=== PATIENT | male | born 2000 | race Two or more races ===

== ENCOUNTER 2020-02-12 17:18 | Emergency (ER) | payer BC, OTHER ==
[~2020-02-12] VITALS: Ht 162.6 cm; Wt 65.0 kg
[~2020-02-12 17:18] MED LIST: NAPR500T8 PO
[2020-02-12] MEDS ORDERED: IBUPROFEN 200 MG TABLET. PO ONE (17:45)
--- NOTE | 2020-02-12 18:46 | RAD ---
Exam: Chest one view INDICATION: Fever, cough TECHNIQUE: Frontal view of the chest Comparisons: None FINDINGS: The cardiomediastinal silhouette and pulmonary vessels are within normal limits. The lung and pleural spaces are clear. IMPRESSION: No acute cardiopulmonary process. Electronically signed by: Atiya Ji MD (02/12/2020 6:43 PM) [id number]
[2020-02-12 19:00] VITALS: BP 135/60
[2020-02-12] MEDS ORDERED: AZIT500T4 PO (19:02)
--- NOTE | 2020-02-12 19:02 | PHYS DOC ---
Past Medical History Past Medical History: No Pertinent History (LIBBY OROZCO APRN) Past Surgical History: No Surgical History (LIBBY OROZCO APRN) Smoking Status: Never Smoker Alcohol Use: None Drug Use: None (LIBBY OROZCO APRN) General Adult EDM: Chief Complaint: FEVER HPI: HPI: Patient is a 19 year old male who presents to the emergency department with complaints of fever up to 102 that began this morning with a cough and headache. He denies any known exposure to COVID-19. He denies any recent travel. Patient states he is spent most of his time at home since the quarantine began however he has been out in the public shopping and getting gas etc. He denies any shortness of breath, nausea, vomiting, diarrhea, abdominal pain, chest pain, or palpitations. He states that his cough has been dry, he denies any shortness of breath, or weakness. He states he has felt a bit fatigued today. He last took 1 g of Tylenol at 1400 this afternoon. He currently denies any pain. (LIBBY OROZCO APRN) Review of Systems: Review of Systems: Complete ROS is negative unless otherwise noted in HPI. (LIBBY OROZCO APRN) Heart Score: Risk Factors: Risk Factors: DM, Current or recent (<one month) smoker, HTN, HLP, family history of CAD, obesity. Risk Scores: Score 0 - 3: 2.5% MACE over next 6 weeks - Discharge Home Score 4 - 6: 20.3% MACE over next 6 weeks - Admit for Clinical Observation Score 7 - 10: 72.7% MACE over next 6 weeks - Early Invasive Strategies (LIBBY OROZCO APRN) Current Medications: Current Medications Medications (Trade) Dose Ordered Sig/Gloria Start Time Stop Time Status Last Admin Dose Admin Ibuprofen (Motrin) 600 mg 1X ONCE 02/12/20 17:45 02/12/20 17:46 DC (LIBBY OROZCO APRN) Allergies: Allergies: Allergies Coded Allergies Type Severity Reaction Last Updated Verified No Known Drug Allergies 08/10/16 No (LIBBY OROZCO APRN) Physical Exam: PE: Constitutional: Well developed, well nourished, no acute distress, ill appearance. [] HENT: Normocephalic, atraumatic, bilateral external ears normal, bilateral TMs normal, posterior pharynx normal, oropharynx moist, no oral exudates, nose normal. [] Eyes: PERRLA, EOMI, conjunctiva normal, no discharge. [] Neck: Normal range of motion, no tenderness, supple, no stridor. [] Cardiovascular:Heart rate regular rhythm, no murmur [] Lungs & Thorax: Bilateral breath sounds clear to auscultation, Respirations even and unlabored, no retractions, no respiratory distress [] Skin: Flushed, hot, dry, no rash Back: No tenderness Extremities: No cyanosis, no clubbing, ROM intact, no edema. [] Neurologic: Alert and oriented X 3, no focal deficits noted. [] Psychologic: Affect normal, judgement normal, mood normal. [] (LIBBY OROZCO APRN) Current Patient Data: Vital Signs: Vital Signs Date Time Temp Pulse Resp B/P (MAP) Pulse Ox O2 Delivery O2 Flow Rate FiO2 02/12/20 17:31 101.5 93 18 121/60 (80) 99 Room Air 101.5 (LIBBY OROZCO APRN) EKG: EKG: [] (LIBBY OROZCO APRN) Radiology/Procedures: Radiology/Procedures: PROCEDURE: CHEST AP ONLY Exam: Chest one view INDICATION: Fever, cough TECHNIQUE: Frontal view of the chest Comparisons: None FINDINGS: The cardiomediastinal silhouette and pulmonary vessels are within normal limits. The lung and pleural spaces are clear. IMPRESSION: No acute cardiopulmonary process. [] (LIBBY OROZCO APRN) Course & Med Decision Making: Course & Med Decision Making Pertinent Labs and Imaging studies reviewed. (See chart for details) Patient is a 19-year-old male who presented to the emergency room with compla ints of fever and a cough. Patient's temperature was 101.5 on arrival. He was given 600 mg of ibuprofen in the ER. Physical exam and pt hx is concerning for COVID-19. A COVID-19 nasal swab was ordered. I advised the patient that he needs to go home and quarantine himself for 14 days or until he has been symptom free without medications for 72 hours. He is to drink plenty of fluids, take Tylenol or ibuprofen as needed for fever. Prescription written for Z-lea to take as directed. COVID-19 CRITERIA: The patient was evaluated during the global COVID-19 pandemic, and that diagnosis was suspected/considered upon their initial presentation. Their evaluation, treatment and testing was consistent with current guidelines for patients who present with complaints or symptoms that may be related to COVID-19. (LIBBY OROZCO APRN) [place] Disclaimer: [place] Disclaimer: This electronic medical record was generated, in whole or in part, using a voice recognition dictation system. (LIBBY OROZCO APRN) Departure Departure Impression: Primary Impression: URI with cough and congestion Additional Impressions: Advice given about COVID-19 virus infection Suspected COVID-19 virus infection Fever Qualified Codes: R50.9 - Fever, unspecified Disposition: 01 HOME, SELF-CARE Condition: STABLE Referrals: NO PCP (PCP) Patient Instructions: Fever, Adult, [id number], Upper Respiratory Infection, Adult, [id number] Additional Instructions: Thank you for visiting [facility]. We appreciate you trusting us with your care. If any additional problems come up please don't hesitate to return to visit us. Follow up with your primary care provider so they can plan additional care if needed and know about the problem that you had today. If symptoms worsen come back to the Emergency Department. Any concerning symptoms that start such as chest pain, shortness of air, weakness or numbness on one side of the body, running high fevers or any other concerning symptoms return to the ER. You have a viral syndrome which may include symptoms like muscle aches, fevers, chills, runny nose, cough, sneezing, sore throat, nausea, vomiting, or diarrhea. One of the potential viruses that you may have is SARS-CoV-2, the virus that causes COVID-19, also known as the Coronavirus. You are just as likely to have a different viral infection such as the common cold, flu, etc. Most patients with the Coronavirus have mild symptoms and recover on their own. Resting, staying hydrated, and sleep based on known cases can be helpful. As of todays visit, you are well enough to go home and treat your symptoms with oral fluids and over the counter medications. Coronavirus testing is not performed on most people with mild symptoms who are being discharged from the emergency department. If Coronavirus testing was performed today the results will not be available for possibly up to 3-4 days. If your result is positive you will be contacted. Please follow the following precautions at home: 1. Stay home except to get medical care. 2. As advised by the CDC, we recommend that you stay in your home and minimize contact with other people. We do not want you to spread the infection. 3. Those who are older or have significant medical issues may have more severe symptoms from this infection. We recommend self-isolation FOR AT LEAST 7 DAYS after your 1st day of symptoms. AFTER you feel better please wait AT LEAST ANOTHER WEEK before returning to regular activities and being around other pe ople. 4. IF you become sicker and have difficulty breathing, chest pain, are unable to eat/drink, severe vomiting, diarrhea, or weakness you may need to return to the Emergency Department. 5. You should restrict activities outside of your home, except for getting medical care. DO NOT go to work, school, or public areas. Avoid using public transportation, ride sharing, or taxis. 6. Separate yourself from other people in your home. You should use a separate bathroom if possible. 7. Avoid sharing personal household items such as dishes, cups, eating utensils, towels, etc. 8. Clean all high touch surfaces every day (door knobs, counter tops, etc). Use a household cleaning spray or wipe per label instructions. 9. Clean your hands often. Wash your hands with soap and water for at least 20 seconds. 10. Cover your mouth and nose when you cough or sneeze. 11. Throw used tissues in the trash and immediately wash your hands. For additional resources please visit the CDC website or the [place] Department [facility] ([phone]), you may also call 211 for further information. Scripts Azithromycin (AZITHROMYCIN TABLET) 500 Mg Tablet 1 TAB PO DAILY for 5 Days, #5 TAB 0 Refills Prov: LIBBY OROZCO APRN 02/12/20 COVID-19 Assessment: COVID-19 Patient Risks: Age 65 or older: No Sign of co-morbidity: No Exp to person + for COVID: No Exp to PUI: No Lower respiratory symptoms: Yes Fever: Yes Other: No (LIBBY OROZCO APRN) PPE Use: Full PPE with N95 mask or PAPR: Yes (PAPR with Full PPE was worn with this patient) (LIBBY OROZCO APRN) Attending Signature Attending Signature I have reviewed the PA/RECOVERY ROOM NURSE's note and plan of care. I was available for consultation as needed during the patient's visit in the emergency department. I agree with the clinical impression, plan, and disposition. (ANABEL POLANCO DO) LIBBY OROZCO APRN Feb 12, 2020 19:02 ANABEL POLANCO DO February 13, 2020 15:34
== END 2020-02-12 19:10 | disposition home or self-care (01) ==
LOC: ER 17:18
DX: J06.9 Acute upper respiratory infection, unspecified (principal); Z03.818 Encounter for observation for suspected exposure to other biological agents ruled out
CPT/HCPCS: 36415; 71045; 87635; 99284